=== PATIENT | female | born 1985 | race Caucasian/White ===

== ENCOUNTER 2022-01-24 05:51 | Day surgery (SDC) | payer BC ==
[2022-01-23 12:43] LABS: BASOPHILS ABSOLUTE AUTO 0.03 K/mm3 (0.00-0.23); BASOPHILS PERCENT AUTO 1 % (0-2); EOSINOPHILS ABSOLUTE AUTO 0.11 K/mm3 (0.00-0.68); EOSINOPHILS PERCENT AUTO 2 % (0-6); Hematocrit 38.2 % (33.0-51.0); Hemoglobin 12.1 g/dL (11.5-16.0); IMMATURE GRAN ABSOLUTE AUTO 0.01 K/mm3 (0.00-0.10); IMMATURE GRAN PERCENT AUTO 0 % (0-1); LYMPHOCYTES ABSOLUTE AUTO 1.34 K/mm3 (0.84-5.20); LYMPHOCYTES PERCENT AUTO 26 % (21-46); MONOCYTES ABSOLUTE AUTO 0.36 K/mm3 (0.16-1.47); MONOCYTES PERCENT AUTO 7 % (4-13); Mean Corpuscular HGB 29.1 pg (26.0-34.0); Mean Corpuscular HGB Conc 31.7 g/dL (31.5-36.5); Mean Corpuscular Volume 92 fL (80-100); Mean Platelet Volume 10.3 fL (9.1-12.4); NEUTROPHILS PERCENT AUTO 65 % (41-73); Platelet Count 292 K/mm3 (150-400); RDW Standard Deviation 50.4 fL (35.1-46.3); Red Blood Cell Count 4.16 M/mm3 (3.80-5.20); White Blood Cell Count 5.25 K/mm3 (4.00-11.30)
[2022-01-23 12:56] LABS: Bun/Creatinine Ratio 17.8 (12.0-20.0); Calcium, Blood 9.5 mg/dL (8.5-10.1); Creatinine, Blood 0.62 mg/dL (0.40-1.00); Potassium, Blood 3.9 mmol/L (3.5-5.5)
[~2022-01-24] VITALS: Ht 167.6 cm; Wt 98.3 kg
--- NOTE | 2022-01-24 09:38 | NUR ---
01/24/22 0938 Ele Robles HOLLINS PLACED INTRAOPERATIVELY BY SURGEON. HOLLINS DRAINING CLEAR YELLOW URINE. PATIENT TOLERATED WELL. 300ML OF URINE OUTPUT
--- NOTE | 2022-01-24 17:30 | NUR ---
DISCHARGE DESPITE VOMITING, PT FEELS READY FOR DC. AMBULATING, VOIDING, PAIN WELL MANAGED. ALREADY HAS SCRIPTS FILLED PRIOR TO COMING IN. STATES SHE UNDERSTANDS MEDS @ HOME. ESCORTED OUT VIA W/C.
== END 2022-01-24 17:40 | disposition home or self-care (01) ==
LOC: ORSCMMR 05:51 → ORD 07:30 → SURS 10:42 → ORSCMMR 17:40
PROVIDERS: Obstetrics & Gynecology
PROC: 8E0W4CZ Robotic Assisted Procedure of Trunk Region, Percutaneous Endoscopic Approach (ICD-10-PCS; principal; 2022-01-24 07:30)
PROC: 0UT74ZZ Resection of Bilateral Fallopian Tubes, Percutaneous Endoscopic Approach (ICD-10-PCS; principal; 2022-01-24 07:30)
PROC: 0UT94ZZ Resection of Uterus, Percutaneous Endoscopic Approach (ICD-10-PCS; principal; 2022-01-24 07:30)
DX: N92.1 Excessive and frequent menstruation with irregular cycle (principal); N93.9 Abnormal uterine and vaginal bleeding, unspecified; D25.9 Leiomyoma of uterus, unspecified; N73.6 Female pelvic peritoneal adhesions (postinfective); E66.9 Obesity, unspecified; Z68.35 Body mass index [BMI] 35.0-35.9, adult
CPT/HCPCS: 58571; S2900; 36415; 80048; 84703; 85025; 86850; 86900; 86901; 88307; A9270; J1100; J1170; J1580; J1885; J2250; J2405; J2704; J3010; J7120

== ENCOUNTER 2025-03-13 11:53 | Emergency (ER) | payer OTHER ==
[~2025-03-13] VITALS: Ht 170.2 cm; Wt 97.5 kg
[2025-03-13 12:10] VITALS: BP 135/86
[2025-03-13] MEDS ORDERED: Norco 5-325 Ta1 EACH PO (13:21)
== END 2025-03-13 13:29 | disposition home or self-care (01) ==
LOC: ER 11:53
DX: S52.572A Other intraarticular fracture of lower end of left radius, initial encounter for closed fracture (principal); Z88.0 Allergy status to penicillin; V80.010A Animal-rider injured by fall from or being thrown from horse in noncollision accident, initial encounter
CPT/HCPCS: 25605; 73090; 73110; 99283-25; A9270